=== PATIENT | female | born 1980 | race African-American/Black ===

== ENCOUNTER 2016-10-03 08:04 | Emergency (ER) | payer OTHER ==
[~2016-10-03] VITALS: Ht 160 cm; Wt 62.0 kg
[~2016-10-03 08:04] MED LIST: TRIA.1%T TOP; VALT1TAB26 PO
[2016-10-03 08:05] VITALS: BP 112/68; PULSE 70; RESP 20; TEMP 97.8; O2SAT 98
[2016-10-03 08:30] VITALS: O2SAT 99
[2016-10-03] MEDS ORDERED: SODIUM CHLOR 0.9% 1000 ML INJ 1,000 ML IV SCH (08:31)
--- NOTE | 2016-10-03 08:37 | PD ---
HPI Chief Complaint: Abdominal Pain Time Seen by Provider: 08:19 Travel History International Travel<30 days: No Contact w/Intl Traveler<30days: No Traveled to known affect area: No History of Present Illness HPI 36yo F with PMH of nephrolithiasis, uterine fibroids presents to the ED with c/ o right sided back pain that radiates to suprapubic region for 2 days. + Nausea. +1 episode of vomiting today. Denies any fever, chest pain, sob, urinary complaints, vaginal discharge. PFSH Past Medical History Asthma: Yes Diminished Hearing: No Respiratory: Yes (asthma) Tetanus Vaccination: < 5 Years Influenza Vaccination: Yes ?: Unknown LMP: last week : 1 Para: 1 Past Surgical History Section: Yes Social History Alcohol Use: No Tobacco Use: Yes (09/17 PPD) Substance Use: No Allergies-Medications (Allergen,Severity, Reaction): Coded Allergies: Atarax (Verified Allergy, Severe, 10/03/16) Penicillin (Verified Allergy, Severe, 10/03/16) Reported Meds & Prescriptions Reported Meds & Active Scripts Active Ibuprofen 600 Mg Tab 600 Mg PO Q8HR PRN Metronidazole 500 Mg Tab 500 Mg PO BID 7 Days Review of Systems Except as stated in HPI: all other systems reviewed are Neg Physical Exam Narrative GENERAL: 36yo F not in acute distress. SKIN: Warm and dry. HEAD: Atraumatic. Normocephalic. EYES: Pupils equal and round. No scleral icterus. No injection or drainage. ENT: No nasal bleeding or discharge. Mucous membranes pink and moist. NECK: Trachea midline. No JVD. CARDIOVASCULAR: Regular rate and rhythm. No murmur appreciated. RESPIRATORY: No accessory muscle use. Clear to auscultation. Breath sounds equal bilaterally. GASTROINTESTINAL: Abdomen soft, suprapubic tenderness. No RLQ pain. No rebound tenderness or guarding. BACK: No CVA tenderness bilaterally. PELVIC: Small amount of yellow vaginal discharge. No CMT or adnexal tenderness bilaterally. MUSCULOSKELETAL: No obvious deformities. No clubbing. No cyanosis. No edema. NEUROLOGICAL: Awake and alert. No obvious cranial nerve deficits. Motor grossly within normal limits. Normal speech. PSYCHIATRIC: Appropriate mood and affect; insight and judgment normal. Data Data Last Documented VS Vital Signs Date Time Temp Pulse Resp B/P Pulse Ox O2 Delivery O2 Flow Rate FiO2 10/03/16 08:30 99 Room Air 10/03/16 08:05 97.8 70 20 112/68 Orders Complete Blood Count With Diff (10/03/16 08:31) Comprehensive Metabolic Panel (10/03/16 08:31) Lipase (10/03/16 08:31) Prothrombin Time / Inr (Pt) (10/03/16 08:31) Act Partial Throm Time (Ptt) (10/03/16 08:31) Urinalysis - C+S If Indicated (10/03/16 08:31) Iv Access Insert/Monitor (10/03/16 08:31) Ecg Monitoring (10/03/16 08:31) Oximetry (10/03/16 08:31) Ondansetron Inj (Zofran Inj) (10/03/16 08:45) Sodium Chlor 0.9% 1000 Ml Inj (Ns 1000 M (10/03/16 08:31) Sodium Chloride 0.9% Flush (Ns Flush) (10/03/16 08:45) Ed Urine Pregnancytest Poc (10/03/16 08:31) Ketorolac Inj (Toradol Inj) (10/03/16 08:45) Gc And Chlamydia Pcr (10/03/16 08:31) Wet Prep Profile (10/03/16 08:31) Calcium Carbonate (Oscal) (10/03/16 10:15) Metronidazole (Flagyl) (10/03/16 10:15) Labs Laboratory Tests Test 10/03/16 10/03/16 08:45 09:10 White Blood Count 4.1 TH/MM3 Red Blood Count 4.01 MIL/MM3 Hemoglobin 12.9 GM/DL Hematocrit 38.7 % Mean Corpuscular Volume 96.4 FL Mean Corpuscular Hemoglobin 32.1 PG Mean Corpuscular Hemoglobin 33.3 % Concent Red Cell Distribution Width 12.5 % Platelet Count 207 TH/MM3 Mean Platelet Volume 8.7 FL Neutrophils (%) (Auto) 57.2 % Lymphocytes (%) (Auto) 23.0 % Monocytes (%) (Auto) 14.4 % Eosinophils (%) (Auto) 4.1 % Basophils (%) (Auto) 1.3 % Neutrophils # (Auto) 2.3 TH/MM3 Lymphocytes # (Auto) 0.9 TH/MM3 Monocytes # (Auto) 0.6 TH/MM3 Eosinophils # (Auto) 0.2 TH/MM3 Basophils # (Auto) 0.1 TH/MM3 CBC Comment DIFF FINAL Differential Comment Prothrombin Time 11.1 SEC Prothromb Time International 1.0 RATIO Ratio Activated Partial 26.8 SEC Thromboplast Time Urine Color YELLOW Urine Turbidity HAZY Urine pH 5.5 Urine Specific [place] 1.022 Urine Protein TRACE mg/dL Urine Glucose (UA) NEG mg/dL Urine Ketones 10 mg/dL Urine Occult Blood SMALL Urine Nitrite NEG Urine Bilirubin NEG Urine Urobilinogen 2.0 MG/DL Urine Leukocyte Esterase SMALL Urine RBC 1 /hpf Urine WBC 7 /hpf Urine Squamous Epithelial 8 /hpf Cells Urine Mucus FEW /lpf Microscopic Urinalysis Comment CULT NOT INDICATED Sodium Level 137 MEQ/L Potassium Level 3.4 MEQ/L Chloride Level 105 MEQ/L Carbon Dioxide Level 25.2 MEQ/L Anion Gap 7 MEQ/L Blood Urea Nitrogen 9 MG/DL Creatinine 0.66 MG/DL Estimat Glomerular Filtration 123 ML/MIN Rate Random Glucose 89 MG/DL Calcium Level 8.0 MG/DL Total Bilirubin 0.4 MG/DL Aspartate Amino Transf 22 U/L (AST/SGOT) Alanine Aminotransferase 22 U/L (ALT/SGPT) Alkaline Phosphatase 55 U/L Total Protein 7.2 GM/DL Albumin 3.5 GM/DL Lipase 139 U/L Clue Cells (Wet Prep) PRESENT Vaginal Trichomonas (Wet Prep) NONE SEEN Vaginal Yeast (Wet Prep) NONE SEEN Chlamydia trachomatis DNA NOT DETECTED (PCR) Neisseria gonorrhoeae DNA NOT DETECTED (PCR) MDM Medical Decision Making Medical Screen Exam Complete: Yes Emergency Medical Condition: Yes Interpretation(s) Laboratory Tests Test 10/03/16 10/03/16 08:45 09:10 White Blood Count 4.1 TH/MM3 (4.0-11.0) Red Blood Count 4.01 MIL/MM3 (4.00-5.30) Hemoglobin 12.9 GM/DL (11.6-15.3) Hematocrit 38.7 % (35.0-46.0) Mean Corpuscular Volume 96.4 FL (80.0-100.0) Mean Corpuscular Hemoglobin 32.1 PG (27.0-34.0) Mean Corpuscular Hemoglobin 33.3 % Concent (32.0-36.0) Red Cell Distribution Width 12.5 % (11.6-17.2) Platelet Count 207 TH/MM3 (150-450) Mean Platelet Volume 8.7 FL (7.0-11.0) Neutrophils (%) (Auto) 57.2 % (16.0-70.0) Lymphocytes (%) (Auto) 23.0 % (9.0-44.0) Monocytes (%) (Auto) 14.4 % (0.0-8.0) Eosinophils (%) (Auto) 4.1 % (0.0-4.0) Basophils (%) (Auto) 1.3 % (0.0-2.0) Neutrophils # (Auto) 2.3 TH/MM3 (1.8-7.7) Lymphocytes # (Auto) 0.9 TH/MM3 (1.0-4.8) Monocytes # (Auto) 0.6 TH/MM3 (0-0.9) Eosinophils # (Auto) 0.2 TH/MM3 (0-0.4) Basophils # (Auto) 0.1 TH/MM3 (0-0.2) CBC Comment DIFF FINAL Differential Comment Prothrombin Time 11.1 SEC (9.8-11.6) Prothromb Time International 1.0 RATIO Ratio Activated Partial 26.8 SEC Thromboplast Time (24.3-30.1) Urine Color YELLOW (YELLW/STRAW) Urine Turbidity HAZY (CLEAR) Urine pH 5.5 (5.0-8.5) Urine Specific [place] 1.022 (1.002-1.035) Urine Protein TRACE mg/dL (NEG-TRACE) Urine Glucose (UA) NEG mg/dL (NEG) Urine Ketones 10 mg/dL (NEG) Urine Occult Blood SMALL (NEG) Urine Nitrite NEG (NEG) Urine Bilirubin NEG (NEG) Urine Urobilinogen 2.0 MG/DL (LESS THAN 2.0) Urine Leukocyte Esterase SMALL (NEG) Urine RBC 1 /hpf (0-3) Urine WBC 7 /hpf (0-5) Urine Squamous Epithelial 8 /hpf (0-5) Cells Urine Mucus FEW /lpf (OCC) Microscopic Urinalysis Comment CULT NOT INDICATED Sodium Level 137 MEQ/L (136-145) Potassium Level 3.4 MEQ/L (3.5-5.1) Chloride Level 105 MEQ/L (98-107) Carbon Dioxide Level 25.2 MEQ/L (21.0-32.0) Anion Gap 7 MEQ/L (5-15) Blood Urea Nitrogen 9 MG/DL (7-18) Creatinine 0.66 MG/DL (0.50-1.00) Estimat Glomerular Filtration 123 ML/MIN Rate (>89) Random Glucose 89 MG/DL (74-106) Calcium Level 8.0 MG/DL (8.5-10.1) Total Bilirubin 0.4 MG/DL (0.2-1.0) Aspartate Amino Transf 22 U/L (15-37) (AST/SGOT) Alanine Aminotransferase 22 U/L (10-53) (ALT/SGPT) Alkaline Phosphatase 55 U/L (45-117) Total Protein 7.2 GM/DL (6.4-8.2) Albumin 3.5 GM/DL (3.4-5.0) Lipase 139 U/L (73-393) Clue Cells (Wet Prep) PRESENT (NONE) Vaginal Trichomonas (Wet Prep) NONE SEEN (NONE) Vaginal Yeast (Wet Prep) NONE SEEN (NONE) Differential Diagnosis Nephrolithiasis vs. pyelonephritis vs. cystitis vs. PID Narrative Course 36yo well appearing female here with lower abdominal pain. Pt had suprapubic tenderness on exam. Pelvic had small amount of vaginal discharge but no CMT or adnexal tenderness. Pt states she is not sexually active. Pt reevaluated after toradol and abdominal pain has resolved. Labs reviewed, no leukocytosis. K: 3.4, pt is tolerating PO. Calcium 8.0, replaced orally. UA showed small leukocyte but squamous is 8. Culture not indicated. Wet prep showed positive clue cells. Pt given 1 dose of metronidazole here. Diagnosis Primary Impression: Bacterial vaginosis Patient Instructions: General Instructions Departure Forms: Tests/Procedures Additional Instructions: Please do not drink alcohol while taking metronidazole. Return to the ED if symptoms worsen. Please follow up with GEOSPATIAL IMAGERY INTELLIGENCE ANALYST or PMD in 3-7 days. Scripts Ibuprofen 600 Mg [id number] Mg PO Q8HR PRN (PAIN) #20 TAB Ref 0 Prov:Flora Mota 10/03/16 Metronidazole 500 Mg [id number] Mg PO BID 7 Days Ref 0 Prov:Flora Mota 10/03/16 Disposition: 01 DISCHARGE HOME Condition: Stable Flora Mota Oct 03, 2016 08:36
[2016-10-03] MEDS ORDERED: ONDANSETRON HCL 4 MG/2 ML VIAL IVP ONE (08:45)
[2016-10-03] MEDS ORDERED: SODIUM CHLORIDE 0.9% FLUSH 5 ML FLUSH IVF PRN (08:45)
[2016-10-03] MEDS ORDERED: KETOROLAC TROMETHAMINE 30 MG/ML (IVP) VIAL IV PUSH ONE (08:45)
[2016-10-03 08:59] LABS: AUTOMATED NEUTROPHIL # 2.3 TH/MM3 (1.8-7.7); BASOPHIL # 0.1 TH/MM3 (0-0.2); BASOPHIL % 1.3 % (0.0-2.0); EOSINOPHIL # 0.2 TH/MM3 (0-0.4); EOSINOPHIL % 4.1 % (0.0-4.0); HEMATOCRIT 38.7 % (35.0-46.0); HEMO FLAGS DIFF FINAL; LYMPHOCYTE # 0.9 TH/MM3 (1.0-4.8); MEAN CELL VOLUME 96.4 FL (80.0-100.0); MEAN CORPUSCULAR HEMOGLOBIN 32.1 PG (27.0-34.0); MEAN CORPUSCULAR HGB CONC 33.3 % (32.0-36.0); MONO % 14.4 % (0.0-8.0); NEUT % 57.2 % (16.0-70.0); PLATELET COUNT 207 TH/MM3 (150-450); RED BLOOD COUNT 4.01 MIL/MM3 (4.00-5.30); RED CELL DISTRIBUTION WIDTH 12.5 % (11.6-17.2); WHITE BLOOD COUNT 4.1 TH/MM3 (4.0-11.0)
[2016-10-03 09:14] LABS: BLOOD, URINE SMALL (NEG); GLUCOSE,URINE NEG (NEG); KETONE, URINE 10 mg/dL (NEG); MUCUS URINE FEW /lpf (OCC); NITRITE,URINE NEG (NEG); PH, URINE 5.5 (5.0-8.5); SQUAMOUS EPITHELIAL CELL URINE 8 /hpf (0-5); URINE COLOR YELLOW (YELLW/STRAW)
[2016-10-03 09:15] LABS: APTT (PATIENT) 26.8 SEC (24.3-30.1); PROTHROMBIN TIME - PATIENT 11.1 SEC (9.8-11.6)
[2016-10-03 09:18] LABS: COMMENT (UR) CULT NOT INDICATED; CULTURE IF INDICATED CULT NOT INDICATED
[2016-10-03 09:30] LABS: ALKALINE PHOSPHATASE 55 U/L (45-117); ALT (GPT) 22 U/L (10-53); ANION GAP 7 MEQ/L (5-15); AST (GOT) 22 U/L (15-37); BICARBONATE 25.2 MEQ/L (21.0-32.0); BLOOD UREA NITROGEN 9 MG/DL (7-18); CHLORIDE 105 MEQ/L (98-107); GLOMERULAR FILTRATION RATE 123 ML/MIN (>89); POTASSIUM 3.4 MEQ/L (3.5-5.1); SODIUM (NA) 137 MEQ/L (136-145); TOTAL BILIRUBIN ADULT 0.4 MG/DL (0.2-1.0)
[2016-10-03] MEDS ORDERED: METR500T10 PO (10:00)
[2016-10-03] MEDS ORDERED: IBUP-232 PO (10:00)
[2016-10-03] MEDS ORDERED: metroNIDAZOLE 500 MG TAB PO ONE (10:15)
[2016-10-03] MEDS ORDERED: CALCIUM CARBONATE 1.25 GM (CA 500 MG) TAB PO ONE (10:15)
[2016-10-03 12:28] LABS: CHLAMYDIA PCR NOT DETECTED (NOT DETECT); NEISSERIA PCR NOT DETECTED (NOT DETECT)
== END 2016-10-03 11:38 | disposition home or self-care (01) ==
LOC: NEPE 08:04
DX: N76.0 Acute vaginitis (principal); R10.30 Lower abdominal pain, unspecified; R11.2 Nausea with vomiting, unspecified; F17.200 Nicotine dependence, unspecified, uncomplicated; Z87.09 Personal history of other diseases of the respiratory system
CPT/HCPCS: 80053; 81001; 83690; 84703; 85025; 85610; 85730; 87210; 87491; 87591; 96374; 96375; 99283; J1885; J2405; J7030

== ENCOUNTER 2016-11-19 12:40 | Emergency (ER) | payer OTHER ==
[~2016-11-19] VITALS: Ht 160 cm; Wt 52.6 kg
[~2016-11-19 12:40] MED LIST changes: +IBUP-232 PO; +METR500T10 PO; -TRIA.1%T TOP; -VALT1TAB26 PO
[2016-11-19 12:42] VITALS: BP 110/62; PULSE 88; RESP 20; TEMP 98.7; O2SAT 97
--- NOTE | 2016-11-19 14:14 | PD ---
HPI Chief Complaint: Abdominal Pain Time Seen by Provider: 14:10 Travel History International Travel<30 days: No Contact w/Intl Traveler<30days: No Traveled to known affect area: No History of Present Illness HPI Patient is a 36-year-old female presenting to the emergency department for evaluation of health aching lower back pain. Patient states it started 2 days ago, she reports the pain is 8 out of 10. She describes it as aching and sore. She denies any fever, chills, vomiting, diarrhea, constipation. She has been sexually active, her last menstrual cycle was several weeks ago. She reports a slight vaginal discharge which is white in color with a slight odor. She denies any dysuria. Patient reports a history of uterine fibroids. [facility] Past Medical History Asthma: Yes Diminished Hearing: No Respiratory: Yes (ASTHMA) : 1 Para: 1 Past Surgical History Section: Yes Social History Alcohol Use: No Tobacco Use: Yes (/ PPD) Substance Use: No Allergies-Medications (Allergen,Severity, Reaction): Coded Allergies: Atarax (Verified Allergy, Severe, 11/19/16) Penicillin (Verified Allergy, Severe, 11/19/16) Reported Meds & Prescriptions Reported Meds & Active Scripts Active Plus Iron 29-1 mg ( Vit-Iron Carbonyl) 1 Tab Tab 1 Tab PO DAILY Ibuprofen 600 Mg Tab 600 Mg PO Q8HR PRN Metronidazole 500 Mg Tab 500 Mg PO BID 7 Days Review of Systems Except as stated in HPI: all other systems reviewed are Neg Gastrointestinal: Positive: Nausea, Abdominal Pain Genitourinary: Positive: Pelvic Pain, Discharge, No: Dysuria, Vaginal Bleeding Musculoskeletal: Positive: Pain (back) Physical Exam Narrative GENERAL: Thin, well-developed, alert female. Resting comfortably in no acute distress. SKIN: Warm and dry. HEAD: Atraumatic. Normocephalic. EYES: Pupils equal and round. No scleral icterus. No injection or drainage. ENT: No nasal bleeding or discharge. Mucous membranes pink and moist. NECK: Trachea midline. No JVD. CARDIOVASCULAR: Regular rate and rhythm. No murmur appreciated. RESPIRATORY: No accessory muscle use. Clear to auscultation. Breath sounds equal bilaterally. GASTROINTESTINAL: Abdomen soft, tender to palpation in right lower quadrant/ suprapubic area, nondistended. Hepatic and splenic margins not palpable. Positive bowel sounds, no rebound, positive guarding. MUSCULOSKELETAL: No obvious deformities. No clubbing. No cyanosis. No edema. NEUROLOGICAL: Awake and alert. No obvious cranial nerve deficits. Motor grossly within normal limits. Normal speech. PSYCHIATRIC: Appropriate mood and affect; insight and judgment normal. GENITOURINARY: No dysuria, no frequency, positive for white vaginal discharge , slightly malodorous. Positive for adnexal tenderness on the right. No CMT on bimanual examination Data Data Last Documented VS Vital Signs Date Time Temp Pulse Resp B/P Pulse Ox O2 Delivery O2 Flow Rate FiO2 11/19/16 12:42 98.7 88 20 110/62 97 Room Air Orders Gc And Chlamydia Pcr (11/19/16 14:07) Wet Prep Profile (11/19/16 14:07) Ua Includes Microscopic (11/19/16 14:07) Ed Urine Pregnancytest Poc (11/19/16 14:07) Beta Hcg (Quant/Titer) (11/19/16 14:23) Us Pelvis (Ques Pr/Ect)W Trans (11/19/16 ) Acetaminophen (Tylenol) (11/19/16 15:45) Labs Laboratory Tests Test 11/19/16 11/19/16 14:18 14:35 Urine Color YELLOW Urine Turbidity CLEAR Urine pH 6.5 Urine Specific [place] 1.023 Urine Protein NEG mg/dL Urine Glucose (UA) NEG mg/dL Urine Ketones 10 mg/dL Urine Occult Blood NEG Urine Nitrite NEG Urine Bilirubin NEG Urine Urobilinogen 2.0 MG/DL Urine Leukocyte Esterase NEG Urine RBC LESS THAN 1 /hpf Urine WBC LESS THAN 1 /hpf Urine Squamous Epithelial <1 /hpf Cells Urine Mucus FEW /lpf Microscopic Urinalysis Comment Clue Cells (Wet Prep) PRESENT Vaginal Trichomonas (Wet Prep) NONE SEEN Vaginal Yeast (Wet Prep) NONE SEEN Chlamydia trachomatis DNA NOT DETECTED (PCR) Neisseria gonorrhoeae DNA NOT DETECTED (PCR) Human Chorionic Gonadotropin, 292 MIU/ML Quant MDM Medical Decision Making Medical Screen Exam Complete: Yes Emergency Medical Condition: Yes Interpretation(s) Vital Signs Date Time Temp Pulse Resp B/P Pulse Ox O2 Delivery O2 Flow Rate FiO2 11/19/16 12:42 98.7 88 20 110/62 97 Room Air Differential Diagnosis versus UTI versus PID versus ovarian cyst versus uterine fibroid versus less likely appendicitis versus other Narrative Course Patient is a 36-year-old female presenting to emergency evaluation of pelvic and back pain that started 2 days ago. She also reports vaginal discharge. Patient's last menstrual cycle was several weeks ago. Labs and imaging ordered and pending. GC/chlamydia, wet prep sent. Patient has positive POC urine test Pelvic ultrasound ordered and pending. Initiated workup in triage, care of patient will be transferred to provider when medical beds available. Scripts Vit-Iron Carbonyl ( Plus Iron 29-1 mg)1 Tab Tab1 Tab PO DAILY #30 TAB Ref 0 Prov:Jessenia Hunt DO 11/19/16 Mikayla Drummond Nov 19, 2016 14:14
[2016-11-19 14:47] LABS: BLOOD, URINE NEG (NEG); GLUCOSE,URINE NEG (NEG); KETONE, URINE 10 mg/dL (NEG); MUCUS URINE FEW /lpf (OCC); NITRITE,URINE NEG (NEG); PH, URINE 6.5 (5.0-8.5); SQUAMOUS EPITHELIAL CELL URINE <1 /hpf (0-5); URINE COLOR YELLOW (YELLW/STRAW)
[2016-11-19 15:12] LABS: BETA HCG QUANT 292 MIU/ML (0-5)
[2016-11-19] MEDS ORDERED: ACETAMINOPHEN 325 MG TAB PO ONE (15:45)
--- NOTE | 2016-11-19 15:48 | PD ---
Physical Exam Date Seen by Provider: Nov 19, 2016 Data Data Last Documented VS Vital Signs Date Time Temp Pulse Resp B/P Pulse Ox O2 Delivery O2 Flow Rate FiO2 11/19/16 12:42 98.7 88 20 110/62 97 Room Air Orders Gc And Chlamydia Pcr (11/19/16 14:07) Wet Prep Profile (11/19/16 14:07) Ua Includes Microscopic (11/19/16 14:07) Ed Urine Pregnancytest Poc (11/19/16 14:07) Beta Hcg (Quant/Titer) (11/19/16 14:23) Us Pelvis (Ques Pr/Ect)W Trans (11/19/16 ) Acetaminophen (Tylenol) (11/19/16 15:45) Labs Laboratory Tests Test 11/19/16 11/19/16 14:18 14:35 Urine Color YELLOW Urine Turbidity CLEAR Urine pH 6.5 Urine Specific [place] 1.023 Urine Protein NEG mg/dL Urine Glucose (UA) NEG mg/dL Urine Ketones 10 mg/dL Urine Occult Blood NEG Urine Nitrite NEG Urine Bilirubin NEG Urine Urobilinogen 2.0 MG/DL Urine Leukocyte Esterase NEG Urine RBC LESS THAN 1 /hpf Urine WBC LESS THAN 1 /hpf Urine Squamous Epithelial <1 /hpf Cells Urine Mucus FEW /lpf Microscopic Urinalysis Comment Clue Cells (Wet Prep) PRESENT Vaginal Trichomonas (Wet Prep) NONE SEEN Vaginal Yeast (Wet Prep) NONE SEEN Human Chorionic Gonadotropin, 292 MIU/ML Quant MDM Medical Record Reviewed: Yes Supervised Visit with JUAN: Yes Interpretation(s) Vital Signs Date Time Temp Pulse Resp B/P Pulse Ox O2 Delivery O2 Flow Rate FiO2 11/19/16 12:42 98.7 88 20 110/62 97 Room Air Differential Diagnosis Cervicitis, bacterial vaginosis, early , fibroids, ovarian cyst Narrative Course I, Dr. uHnt, have reviewed the advance practice practitioner's documentation and am in agreement, met with the patient face to face, made the diagnosis, and the medical decision making was done by me. *My assessment and Findings: Patient is a 36-year-old female who presents to emergency room with complaints of pelvic pain as well as low back pain. Reports that she has noticed some vaginal discharge over the past 2 days as well, reports history of uterine fibroids. Care was initiated in triage, patient had pelvic exam as well as lab work performed while in triage. hcg quant: 292 ua: 10 ketones, neg leuk esterase, neg nitrites clue cells: positive Vaginal Trichomonas: None seen Vaginal yeast: None seen Gonorrhea/chlamydia PCR: Pending Pelvic ultrasound: Pending Patient notified that she is with hCG Quant of 292. She will start taking vitamins. She will follow up with her LINKING MACHINE OPERATOR as her last was high risk I reviewed patient's pelvic ultrasound report in detail. Discussed possibility of ectopic , understands need for repeat hCG Quant as well as repeat pelvic ultrasound. A copy of patient's pelvic ultrasound was given to her. Patient will follow-up with her primary care doctor as well as her property handler and return to emergency room as needed. signs and symptoms of when to return to the emergency room was reviewed with patient. Diagnosis Primary Impression: Pelvic pain Additional Impressions: BV (bacterial vaginosis) Qualified Code: Z3A.01 - Less than 8 weeks gestation of Uterine fibroid Qualified Code: D25.9 - Uterine leiomyoma, unspecified location Hemorrhagic cyst of ovary possible ectopic Patient Instructions: General Instructions Additional Instruction: Please follow-up with all cultures from today Refrain from sexual activity until all cultures that are resulted, if cultures are positive, all sexual partners including yourself will need to be treated Please follow-up with your LINKING MACHINE OPERATOR as soon as possible Please bring your lab work as well as your ultrasound report to your doctor's office for follow up on all findings from today Scripts Vit-Iron Carbonyl ( Plus Iron 29-1 mg)1 Tab Tab1 Tab PO DAILY #30 TAB Ref 0 Prov:Jessenia Hunt DO 11/19/16 Disposition: 01 DISCHARGE HOME Condition: Stable Jessenia Hunt DO Nov 19, 2016 15:48
--- NOTE | 2016-11-19 16:15 | RADRPT ---
EXAM DATE/TIME: 11/19/2016 14:52 [facility] COMPARISON: No previous studies available for comparison. INDICATIONS : Pelvic pain with . LAB(S): Beta-hC MEDICAL HISTORY : . Asthma. SURGICAL HISTORY : section. ENCOUNTER: Initial ACUITY: 2 days PAIN SCORE: 5/10 LOCATION: Bilateral pelvis MEASUREMENTS: UTERUS: 9.1 x 6.3 x 5.4 cm ENDOMETRIAL STRIPE: 13 mm RIGHT OVARY: 6.4 x 4.5 x 3.5 cm LEFT OVARY: 3.3 x 1.3 x 1.4 cm cm FINDINGS: UTERUS: Uterus is mildly enlarged. Endometrium demonstrates no abnormality. No gestational sac is visualized. There are 3 hypoechoic solid appearing masses within the uterus. One is located in the anterior uter ine body and measures 2.1 x 1.7 x 1.9 cm. Another is located in the posterior uterine body and measur es 1.8 x 1.7 x 1.1 cm. The third is located in the posterior uterine body on the left measuring 11 mm . RIGHT OVARY: The right ovary contains a hypoechoic avascular lesion measuring 3.3 x 3.5 x 3.1 cm. LEFT OVARY: Ovary contains no mass or significant cystic lesion. MISCELLANEOUS: No free fluid. CONCLUSION: 1. of unknown location. No gestational sac is visualized within the endometrium. Based on t he beta-hCG value may simply be too early to identify an intrauterine . However, I cannot de finitely exclude ectopic at this time. Suggest clinical followup and imaging followup to co nfirm appropriate progression of . 2. Complex avascular cystic lesion in the right ovary may represent a hemorrhagic corpus luteal cyst. Suggest attention to this at followup imaging. 3. There are 3 intramural fibroids identified measuring up to 2.1 cm. Domingo Chung MD on November 19, 2016 at 16:09 Board Certified Radiologist. This report was verified electronically.
[2016-11-19] MEDS ORDERED: PREN29TA PO (16:16)
[2016-11-19 17:57] LABS: CHLAMYDIA PCR NOT DETECTED (NOT DETECT); NEISSERIA PCR NOT DETECTED (NOT DETECT)
== END 2016-11-19 16:59 | disposition home or self-care (01) ==
LOC: NEPC 12:40
DX: O26.891 Other specified pregnancy related conditions, first trimester (principal); R10.2 Pelvic and perineal pain; O23.591 Infection of other part of genital tract in pregnancy, first trimester; N76.0 Acute vaginitis; B96.89 Other specified bacterial agents as the cause of diseases classified elsewhere; O34.11 Maternal care for benign tumor of corpus uteri, first trimester; O34.81 Maternal care for other abnormalities of pelvic organs, first trimester; N83.201 Unspecified ovarian cyst, right side; F17.200 Nicotine dependence, unspecified, uncomplicated; Z87.09 Personal history of other diseases of the respiratory system; Z87.42 Personal history of other diseases of the female genital tract; Z3A.01 Less than 8 weeks gestation of pregnancy
CPT/HCPCS: 76700; 76817; 81001; 84702; 84703; 87210; 87491; 87591

== ENCOUNTER 2016-12-25 13:07 | Emergency (ER) | payer MEDICAID, OTHER ==
[~2016-12-25 13:07] MED LIST changes: +PREN29TA PO
[2016-12-25 13:09] VITALS: BP 129/67; PULSE 80; RESP 20; TEMP 99.1; O2SAT 100
--- NOTE | 2016-12-25 13:14 | PD ---
Physical Exam Time Seen by Provider: 13:13 Narrative 36 year old female presents complaining of abd pain, vaginal bleeding, gingival pain, lightheadedness. Currently 9 weeks . VSS. Seen at triage desk. Awaiting bed placement. Data Data Last Documented VS Vital Signs Date Time Temp Pulse Resp B/P Pulse Ox O2 Delivery O2 Flow Rate FiO2 12/25/16 13:09 99.1 80 20 129/67 100 Room Air [facility] Medical Record Reviewed: Yes Supervised Visit with JUAN: Yes Mike Marinelli Dec 25, 2016 13:14
[2016-12-25] MEDS ORDERED: ONDANSETRON HCL 4 MG/2 ML VIAL IV PUSH ONE (13:30)
[2016-12-25] MEDS ORDERED: SODIUM CHLOR 0.9% 1000 ML INJ 1,000 ML IV ONE (13:30)
[2016-12-25 14:07] LABS: AUTOMATED NEUTROPHIL # 4.8 TH/MM3 (1.8-7.7); BASOPHIL # 0.1 TH/MM3 (0-0.2); BASOPHIL % 0.8 % (0.0-2.0); EOSINOPHIL # 0.2 TH/MM3 (0-0.4); EOSINOPHIL % 2.3 % (0.0-4.0); HEMATOCRIT 34.3 % (35.0-46.0); HEMO FLAGS DIFF FINAL; LYMPH % 23.8 % (9.0-44.0); LYMPHOCYTE # 1.8 TH/MM3 (1.0-4.8); MEAN CELL VOLUME 94.4 FL (80.0-100.0); MEAN CORPUSCULAR HEMOGLOBIN 31.8 PG (27.0-34.0); MEAN CORPUSCULAR HGB CONC 33.7 % (32.0-36.0); MONO % 10.7 % (0.0-8.0); NEUT % 62.4 % (16.0-70.0); PLATELET COUNT 240 TH/MM3 (150-450); RED BLOOD COUNT 3.64 MIL/MM3 (4.00-5.30); RED CELL DISTRIBUTION WIDTH 12.4 % (11.6-17.2); WHITE BLOOD COUNT 7.7 TH/MM3 (4.0-11.0)
[2016-12-25] MEDS ORDERED: ACETAMINOPHEN 325 MG TAB PO ONE (14:15)
--- NOTE | 2016-12-25 14:15 | PD ---
HPI Chief Complaint: Related Problem Time Seen by Provider: 13:18 Travel History International Travel<30 days: No Contact w/Intl Traveler<30days: No Traveled to known affect area: No History of Present Illness HPI 36-year-old female complains of low abdominal pain and vaginal bleeding. Patient is about 9 week . Patient started having low abdominal pain since yesterday. Patient states that she has mild vaginal spotting this morning. Patient states that the pain in cramping pain localized to lower abdomen. Patient denies any pain radiation. Patient denies any dysuria or frequency. Patient denies any fever chills. Patient denies any back pain. Patient also complained dizziness, nausea, reflux symptoms. PFSH Past Medical History Asthma: Yes Diminished Hearing: No Respiratory: Yes (ASTHMA) ?: LMP: 9 WEEKS : 1 Para: 1 Past Surgical History Section: Yes Social History Alcohol Use: No Tobacco Use: No Substance Use: No Allergies-Medications (Allergen,Severity, Reaction): Coded Allergies: Atarax (Verified Allergy, Severe, 12/25/16) Penicillin (Verified Allergy, Severe, 12/25/16) Reported Meds & Prescriptions Reported Meds & Active Scripts Active Plus Iron 29-1 mg ( Vit-Iron Carbonyl) 1 Tab Tab 1 Tab PO DAILY Ibuprofen 600 Mg Tab 600 Mg PO Q8HR PRN Metronidazole 500 Mg Tab 500 Mg PO BID 7 Days Review of Systems General / Constitutional: No: Fever Eyes: No: Visual changes HENT: No: Headaches Cardiovascular: No: Chest Pain or Discomfort Respiratory: No: Shortness of Breath Gastrointestinal: Positive: Abdominal Pain Genitourinary: Positive: Vaginal Bleeding, No: Dysuria Musculoskeletal: No: Pain Skin: No Rash Neurologic: No: Weakness Psychiatric: No: Depression Endocrine: No: Polydipsia Hematologic/Lymphatic: No: Easy Bruising Physical Exam Narrative GENERAL: Well-nourished, well-developed patient. SKIN: Focused skin assessment warm/dry. HEAD: Normocephalic. EYES: No scleral icterus. No injection or drainage. NECK: Supple, trachea midline. No JVD or lymphadenopathy. CARDIOVASCULAR: Regular rate and rhythm without murmurs, gallops, or rubs. RESPIRATORY: Breath sounds equal bilaterally. No accessory muscle use. GASTROINTESTINAL: Abdomen soft, non-tender, nondistended. MUSCULOSKELETAL: No cyanosis, or edema. BACK: Nontender without obvious deformity. No CVA tenderness. [employer] MANAGER exam: Patient has small amount of whitish discharge in the vaginal vault. No cervical motion tenderness. No blood in the vaginal vault. Uterus is enlarged with mild tenderness on palpation. No adnexal masses tenderness. Data Data Last Documented VS Vital Signs Date Time Temp Pulse Resp B/P Pulse Ox O2 Delivery O2 Flow Rate FiO2 12/25/16 16:18 16 12/25/16 13:09 99.1 80 129/67 100 Room Air Orders Beta Hcg (Quant/Titer) (12/25/16 13:25) Complete Blood Count With Diff (12/25/16 13:25) Comprehensive Metabolic Panel (12/25/16 13:25) Complete Rh (12/25/16 13:25) Urinalysis - C+S If Indicated (12/25/16 13:25) Iv Access Insert/Monitor (12/25/16 13:25) Sodium Chlor 0.9% 1000 Ml Inj (Ns 1000 M (12/25/16 13:30) Ondansetron Inj (Zofran Inj) (12/25/16 13:30) Us Pelvis (Ques Pr/Ect)W Trans (12/25/16 13:34) Acetaminophen (Tylenol) (12/25/16 14:15) Labs Laboratory Tests Test 12/25/16 12/25/16 13:42 14:29 White Blood Count 7.7 TH/MM3 Red Blood Count 3.64 MIL/MM3 Hemoglobin 11.6 GM/DL Hematocrit 34.3 % Mean Corpuscular Volume 94.4 FL Mean Corpuscular Hemoglobin 31.8 PG Mean Corpuscular Hemoglobin 33.7 % Concent Red Cell Distribution Width 12.4 % Platelet Count 240 TH/MM3 Mean Platelet Volume 8.0 FL Neutrophils (%) (Auto) 62.4 % Lymphocytes (%) (Auto) 23.8 % Monocytes (%) (Auto) 10.7 % Eosinophils (%) (Auto) 2.3 % Basophils (%) (Auto) 0.8 % Neutrophils # (Auto) 4.8 TH/MM3 Lymphocytes # (Auto) 1.8 TH/MM3 Monocytes # (Auto) 0.8 TH/MM3 Eosinophils # (Auto) 0.2 TH/MM3 Basophils # (Auto) 0.1 TH/MM3 CBC Comment DIFF FINAL Differential Comment Sodium Level 139 MEQ/L Potassium Level 3.4 MEQ/L Chloride Level 106 MEQ/L Carbon Dioxide Level 24.8 MEQ/L Anion Gap 8 MEQ/L Blood Urea Nitrogen 5 MG/DL Creatinine 0.47 MG/DL Estimat Glomerular Filtration 182 ML/MIN Rate Random Glucose 82 MG/DL Calcium Level 8.8 MG/DL Total Bilirubin 0.4 MG/DL Aspartate Amino Transf 19 U/L (AST/SGOT) Alanine Aminotransferase 28 U/L (ALT/SGPT) Alkaline Phosphatase 48 U/L Total Protein 7.5 GM/DL Albumin 3.6 GM/DL Human Chorionic Gonadotropin, 933850 MIU/ML Quant Blood Type O POSITIVE Rho(D) Type POSITIVE Urine Color YELLOW Urine Turbidity CLEAR Urine pH 6.5 Urine Specific [place] 1.015 Urine Protein NEG mg/dL Urine Glucose (UA) 300 mg/dL Urine Ketones TRACE mg/dL Urine Occult Blood NEG Urine Nitrite NEG Urine Bilirubin NEG Urine Urobilinogen LESS THAN 2.0 MG/DL Urine Leukocyte Esterase NEG Urine RBC LESS THAN 1 /hpf Urine WBC 1 /hpf Urine Squamous Epithelial <1 /hpf Cells Urine Mucus FEW /lpf Microscopic Urinalysis Comment CULT NOT INDICATED MDM Medical Decision Making Medical Screen Exam Complete: Yes Emergency Medical Condition: Yes Interpretation(s) 1509 p.m. CBC within normal limit. CMP within normal limit. Potassium 3.4. Beta hCG 538354. UA is negative. Blood type O+. 1706 p.m. Last Impressions Pelvis Ultrasound 12/25/16 1334 Signed Impressions: Service Date/Time: Sunday, December 25, 2016 15:47 - CONCLUSION: 1. Single viable intrauterine gestation is noted with a small subchorionic bleed. 2. Small fibroids. Tab Dobbs MD Differential Diagnosis Differential diagnosis including threatened AB, incomplete AB, completed AB, ectopic . Narrative Course 36-year-old female with lower abdominal pain and vaginal spotting. Patient is about 9 weeks . Diagnosis Primary Impression: Pelvic pain in Patient Instructions: General Instructions Additional Instructions: Tylenol for pain. Follow-up with local OB physician. Return if increasing pelvic pain, vaginal bleeding. Frequent bed rest and encourage by mouth fluid. Disposition: 01 DISCHARGE HOME Condition: Stable Altaf Marvin MD Dec 25, 2016 14:15
[2016-12-25 14:24] LABS: ALT (GPT) 28 U/L (10-53); ANION GAP 8 MEQ/L (5-15); AST (GOT) 19 U/L (15-37); BICARBONATE 24.8 MEQ/L (21.0-32.0); BLOOD UREA NITROGEN 5 MG/DL (7-18); CHLORIDE 106 MEQ/L (98-107); GLOMERULAR FILTRATION RATE 182 ML/MIN (>89); POTASSIUM 3.4 MEQ/L (3.5-5.1); SODIUM (NA) 139 MEQ/L (136-145)
[2016-12-25 14:28] LABS: ALKALINE PHOSPHATASE 48 U/L (45-117); TOTAL BILIRUBIN ADULT 0.4 MG/DL (0.2-1.0)
[2016-12-25 14:46] LABS: BLOOD, URINE NEG (NEG); COMMENT (UR) CULT NOT INDICATED; CULTURE IF INDICATED CULT NOT INDICATED; GLUCOSE,URINE 300 mg/dL (NEG); KETONE, URINE TRACE mg/dL (NEG); MUCUS URINE FEW /lpf (OCC); NITRITE,URINE NEG (NEG); PH, URINE 6.5 (5.0-8.5); SQUAMOUS EPITHELIAL CELL URINE <1 /hpf (0-5); URINE COLOR YELLOW (YELLW/STRAW)
[2016-12-25 14:58] LABS: BETA HCG QUANT 169606 MIU/ML (0-5)
[2016-12-25 16:18] VITALS: RESP 16
--- NOTE | 2016-12-25 16:59 | RADRPT ---
EXAM DATE/TIME: 12/25/2016 15:47 [facility] COMPARISON: No previous studies available for comparison. INDICATIONS : Bleeding with . LAB(S): Beta-hC MEDICAL HISTORY : . Asthma. SURGICAL HISTORY : section. ENCOUNTER: Subsequent ACUITY: 1 day PAIN SCORE: 0/10 LOCATION: Bilateral pelvis MEASUREMENTS: TRANSABDOMINAL: UTERUS: 11.1 x 9.4 x 8.9cm TRANSVAGINAL: . ENDOMETRIAL STRIPE: >20 mm RIGHT OVARY: 6.3 x 3.9 x 2.8 cm LEFT OVARY: 2.9 x 1.7 x 1.3 cm FREE FLUID: Yes CROWN RUMP LENGTH: 2.6 cm = 9 WKS 2 DAYS FHR: 165 BPM FINDINGS: There is a gestational sac identified within the uterus containing a pole and yolk sac with an estimated gestational age of 9 weeks 2 days based on crown rump length measurement is 9 weeks 6 days based on sac diameter. heart rate of 180 beats per minute is identified. Within the body of the uterus a hypoechoic mass is seen, solid in appearance measuring 2.5 x 2.4 x 2.6 cm, likely a small f ibroid. A 1.6 x 1 x 1.3 cm hypoechoic focus within the body is also seen, rounded in appearance likel y a small fibroid. In the lower uterine segment region endometrial location a 1.5 x 0.9 x 1.3 cm ferny ection is noted N. a small hemorrhage. There is a small amount of free fluid in the cul-de-sac. Withi n the right ovary a 2.3 x 2.1 x 1.8 cm mass is seen and a 3.8 x 3.9 x 2.3 cm mass without blood flow likely related to corpus luteum.. CONCLUSION: 1. Single viable intrauterine gestation is noted with a small subchorionic bleed. 2. Small fibroids. Tab Dobbs MD on December 25, 2016 at 16:54 Board Certified Radiologist. This report was verified electronically.
== END 2016-12-25 18:13 | disposition home or self-care (01) ==
LOC: NEPD 13:07
DX: O26.891 Other specified pregnancy related conditions, first trimester (principal); R10.2 Pelvic and perineal pain; R42 Dizziness and giddiness; R11.0 Nausea; O26.851 Spotting complicating pregnancy, first trimester; Z87.09 Personal history of other diseases of the respiratory system; Z3A.09 9 weeks gestation of pregnancy
CPT/HCPCS: 76700; 76817; 80053; 81001; 84702; 85025; 86901; 96361; 96374; 99284; J2405; J7030

== ENCOUNTER 2017-01-03 09:43 | Emergency (ER) | payer MEDICAID ==
[~2017-01-03] VITALS: Ht 160 cm; Wt 51.0 kg
[2017-01-03 09:44] VITALS: BP 125/61; PULSE 77; RESP 18; TEMP 98.2; O2SAT 98
[2017-01-03 10:00] VITALS: BP 112/63
[2017-01-03 10:29] LABS: BLOOD, URINE NEG (NEG); COMMENT (UR) CULT NOT INDICATED; CULTURE IF INDICATED CULT NOT INDICATED; GLUCOSE,URINE 300 mg/dL (NEG); KETONE, URINE TRACE mg/dL (NEG); MUCUS URINE FEW /lpf (OCC); NITRITE,URINE NEG (NEG); PH, URINE 6.5 (5.0-8.5); SQUAMOUS EPITHELIAL CELL URINE 1 /hpf (0-5); URINE COLOR YELLOW (YELLW/STRAW)
--- NOTE | 2017-01-03 10:37 | PD ---
HPI . Pelvic pain Chief Complaint: Abdominal Pain Time Seen by Provider: 10:01 Travel History International Travel<30 days: No Contact w/Intl Traveler<30days: No Traveled to known affect area: No History of Present Illness HPI Patient presents with pelvic pain that started this morning. She describes it as a sharp pain and rates it as 10/10. She states that she has had some associated bleeding this morning. Patient is . She is unsure of dates. [facility] Past Medical History Medical History: Denies Significant Hx Asthma: Yes Diminished Hearing: No Respiratory: Yes (ASTHMA) Tetanus Vaccination: < 5 Years Influenza Vaccination: Yes ?: LMP: 2015 : 2 Para: 1 Past Surgical History Section: Yes Social History Alcohol Use: No Tobacco Use: No (quit this year) Substance Use: No Allergies-Medications (Allergen,Severity, Reaction): Coded Allergies: Atarax (Verified Allergy, Severe, 01/03/17) Penicillin (Verified Allergy, Severe, 01/03/17) Reported Meds & Prescriptions Reported Meds & Active Scripts Active No Active Prescriptions or Reported Medications Review of Systems Except as stated in HPI: all other systems reviewed are Neg General / Constitutional: No: Fever, Chills Genitourinary: Positive: Pelvic Pain, Vaginal Bleeding Physical Exam Narrative GENERAL: Awake and alert and in no acute distress. SKIN: Warm and dry. HEAD: Atraumatic. Normocephalic. EYES: Pupils equal and round. NECK: Trachea midline. CARDIOVASCULAR: Regular rate and rhythm. RESPIRATORY: No accessory muscle use. : Normal female external genitalia. There is no blood in the vaginal vault. The cervical os is closed. No adnexal masses or tenderness. Uterus is appropriately enlarged. MUSCULOSKELETAL: No obvious deformities. No edema. NEUROLOGICAL: Awake and alert. No obvious cranial nerve deficits. Motor grossly within normal limits. Normal speech. PSYCHIATRIC: Appropriate mood and affect; insight and judgment normal. Data Data Last Documented VS Vital Signs Date Time Temp Pulse Resp B/P Pulse Ox O2 Delivery O2 Flow Rate FiO2 01/03/17 09:44 98.2 77 18 125/61 98 Orders Gc And Chlamydia Pcr (01/03/17 10:03) Wet Prep Profile (01/03/17 10:03) Urinalysis - C+S If Indicated (01/03/17 10:03) Ed Poc Ultrasound (01/03/17 10:03) Labs Laboratory Tests Test 01/03/17 10:00 Urine Color YELLOW Urine Turbidity CLEAR Urine pH 6.5 Urine Specific [place] 1.022 Urine Protein TRACE mg/dL Urine Glucose (UA) 300 mg/dL Urine Ketones TRACE mg/dL Urine Occult Blood NEG Urine Nitrite NEG Urine Bilirubin NEG Urine Urobilinogen LESS THAN 2.0 MG/DL Urine Leukocyte Esterase TRACE Urine RBC 2 /hpf Urine WBC 3 /hpf Urine Squamous Epithelial 1 /hpf Cells Urine Mucus FEW /lpf Microscopic Urinalysis Comment CULT NOT INDICATED MDM Medical Decision Making Medical Screen Exam Complete: Yes Emergency Medical Condition: Yes Medical Record Reviewed: Yes (patient has been seen here on 11/19 and 12/25 complications related to this . She had an ultrasound on 11/19. Her was too early to see on that exam. She had an additional ultrasound on 12/25 which showed a viable IUP with a small subchorionic bleed. Dates on were estimated at 9 weeks, 2 days.) Differential Diagnosis Differential diagnosis of bleeding in includes but is not limited to physiologic bleeding, spontaneous AB, ectopic , placenta previa Narrative Course Patient presents complaining with pelvic pain and bleeding in early . She had no bleeding noted on exam. UA is negative. Procedures Procedure Narrative Emergency Department Pelvic ultrasound was performed with patient consent. The curvilinear probe was used in the transverse and sagittal views within the suprapubic region revealing a viable intrauterine . heart activity was seen. Diagnosis Primary Impression: Pelvic pain in Patient Instructions: General Instructions, Pelvic Pain in Women (DC) Additional Instructions: He may take Tylenol as needed for discomfort. I encourage you to see an OB doctor for OB related concerns. Scripts No Active Prescriptions or Reported Meds Disposition: 01 DISCHARGE HOME Condition: Stable Chaparrita Cox MD Jan 03, 2017 10:36
[2017-01-03 11:20] VITALS: BP 112/63
[2017-01-03 14:06] LABS: CHLAMYDIA PCR NOT DETECTED (NOT DETECT); NEISSERIA PCR NOT DETECTED (NOT DETECT)
== END 2017-01-03 11:35 | disposition home or self-care (01) ==
LOC: NEPD 09:43
DX: O26.891 Other specified pregnancy related conditions, first trimester (principal); R10.2 Pelvic and perineal pain; Z3A.09 9 weeks gestation of pregnancy
CPT/HCPCS: 81001; 87210; 87491; 87591; 99284